=== PATIENT | female | born 1955 | race Hispanic/Latino ===

== ENCOUNTER 2024-12-05 07:38 | Outpatient (CLI) | payer OTHER ==
[2024-12-05 08:53] LABS: Estimated GFR - POC 81.0
[2024-12-05] MEDS ORDERED: Iopamidol 300 61% 100 ML VIAL FS ONE (10:23)
== END 2024-12-05 07:39 | disposition home or self-care (01) ==
LOC: CSHCT 07:38
PROVIDERS: ATTEND Family Medicine
DX: R93.89 Abnormal findings on diagnostic imaging of other specified body structures (principal); R31.29 Other microscopic hematuria
CPT/HCPCS: 71260; 74178; 82565; Q9967